=== PATIENT | male | born 1995 | race Caucasian/White ===

== ENCOUNTER 2019-09-28 13:22 | Emergency (ER) | payer OTHER ==
[~2019-09-28] VITALS: Ht 177.8 cm; Wt 72.6 kg
[2019-09-28] MEDS ORDERED: KEFLEX500 M1 PO (14:34)
[2019-09-28 14:50] VITALS: BP 135/86
== END 2019-09-28 14:51 | disposition home or self-care (01) ==
LOC: M.ERS 13:22
DX: S61.112A Laceration without foreign body of left thumb with damage to nail, initial encounter (principal); W26.0XXA Contact with knife, initial encounter; Y93.89 Activity, other specified; Y92.89 Other specified places as the place of occurrence of the external cause; Y99.0 Civilian activity done for income or pay

== ENCOUNTER 2020-08-24 14:16 | Emergency (ER) | payer OTHER ==
[~2020-08-24] VITALS: Ht 177.8 cm; Wt 77.1 kg
[~2020-08-24 14:16] MED LIST: KEFLEX500 M1 PO
[2020-08-24] MEDS ORDERED: ADDERALL XR 2020 MG PO (14:27)
[2020-08-24] MEDS ORDERED: MOBIC7.5 MG PO (15:34)
[2020-08-24 15:45] VITALS: BP 130/78
== END 2020-08-24 15:46 | disposition home or self-care (01) ==
LOC: M.ERS 14:16
DX: S60.221A Contusion of right hand, initial encounter (principal); Z79.899 Other long term (current) drug therapy; W22.8XXA Striking against or struck by other objects, initial encounter; Y93.89 Activity, other specified; Y92.89 Other specified places as the place of occurrence of the external cause; Y99.9 Unspecified external cause status